=== PATIENT | female | born 1940 | race Caucasian/White ===

== ENCOUNTER 2018-10-25 00:01 | Emergency (ER) | payer MEDICARE, OTHER ==
[~2018-10-25] VITALS: Ht 172.7 cm; Wt 88.5 kg
[2018-10-25 00:10] VITALS: BP 148/77
[2018-10-25] MEDS ORDERED: ZOFRAN4 M3 ORAL (00:10)
--- NOTE | 2018-10-25 00:10 | NUR ---
ED Nurse Note: Received report. Pt BIBA from home, AAOx4, stating pt rolledover in the bed and fell and hit her head on table. Scalp laceration noted on right forehead. Will assess and carry out ER MD's orders.
[2018-10-25] MEDS ORDERED: LOVASTATIN10 MG ORAL (00:11)
[2018-10-25] MEDS ORDERED: CELEXA20 MG ORAL (00:11)
[2018-10-25] MEDS ORDERED: LEVOTHYROXINE75 MCG ORAL (00:11)
[2018-10-25] MEDS ORDERED: DONEPEZIL HCL5 M2 ORAL (00:12)
[2018-10-25] MEDS ORDERED: ZANTAC150 MG ORAL (00:12)
[2018-10-25] MEDS ORDERED: GABAPENTIN100 MG ORAL (00:12)
[2018-10-25] MEDS ORDERED: NAMENDA5 MG ORAL (00:13)
[2018-10-25] MEDS ORDERED: NEXIUM10 MG ORAL (00:13)
[2018-10-25] MEDS ORDERED: HYDROcodone/Acetamin 5/325 tab ORAL ONE (00:15)
--- NOTE | 2018-10-25 00:48 | Diagnostic Imaging Report ---
EXAM: CT Head Without Intravenous Contrast CLINICAL HISTORY: TRAUMA TECHNIQUE: Axial computed tomography images of the head/brain without intravenous contrast. CTDI is 70 mGy and DLP is 1337 mGy-cm. One or more of the following dose reduction techniques were used: automated exposure control, adjustment of the mA and/or kV according to patient size, use of iterative reconstruction technique. COMPARISON: No relevant prior studies available. FINDINGS: Brain: No hemorrhage, large hypodensity, or mass effect. Chronic microvascular ischemic changes. Ventricles: No hydrocephalus. Age-appropriate cerebral volume loss. Bones/joints: Unremarkable. Soft tissues: Unremarkable. Sinuses: Unremarkable. Mastoid air cells: Clear. IMPRESSION: No acute hemorrhage, hydrocephalus, or mass effect.
--- NOTE | 2018-10-25 00:53 | Diagnostic Imaging Report ---
EXAM: CT Cervical Spine Without Intravenous Contrast CLINICAL HISTORY: TRAUMA TECHNIQUE: Axial computed tomography images of the cervical spine without intravenous contrast. CTDI is 16 mGy and DLP is 331 mGy-cm. One or more of the following dose reduction techniques were used: automated exposure control, adjustment of the mA and/or kV according to patient size, use of iterative reconstruction technique. COMPARISON: No relevant prior studies available. FINDINGS: Vertebrae: No acute fracture. Bridging anterior osteophytes. Discs/spinal canal/neural foramina: Mild degenerative changes. No high grade spinal canal stenosis. Soft tissues: Unremarkable. IMPRESSION: No acute fracture or subluxation.
[2018-10-25] MEDS ORDERED: Bacitracin Oint UD TOPIC ONE (02:00)
[2018-10-25] MEDS ORDERED: HYDROCODON-ACE1 EA15 ORAL (02:14)
--- NOTE | 2018-10-25 02:15 | Emergency Room Report ---
History of Present Illness General Chief Complaint: Head Injury Source: Patient, Family Member, EMS Present Illness HPI This is a 78-year-old female with a history of dementia. She presents with chief complaint of head injury and neck pain. She was sleeping and rolled off the bed and hit her head on the dresser. No loss of consciousness. She has a laceration to forehead with bleeding. She also complained of neck pain. Pain is 10 out of 10. She does have a history of osteoarthritis and takes tramadol and gabapentin. Allergies: Coded Allergies: No Known Allergies (Unverified , 10/25/18) Patient History Past Medical History: see triage record, old chart reviewed Past Surgical History: other Pertinent Family History: none Social History: Denies: smoking Now: No Immunizations: other Reviewed Nursing Documentation: PMH: Agreed; PSxH: Agreed Nursing Documentation-PMH Past Medical History: No History, Except For Hx Gastrointestinal Problems: Yes - GERD Hx Neurological Problems: Yes - hypothyroidism, muscle spasms,dementia Review of Systems Eye: Denies: eye pain, blurred vision ENT: Denies: ear pain, nose congestion, throat swelling Respiratory: Denies: cough, shortness of breath Cardiovascular: Denies: chest pain, palpitations Gastrointestinal: Denies: abdominal pain, diarrhea, nausea, vomiting Musculoskeletal: Denies: back pain, joint pain Skin: Denies: rash Neurological: Reports: headache; Denies: numbness Endocrine: Denies: increased thirst, increased urine Hematologic/Lymphatic: Denies: easy bruising All Other Systems: negative except mentioned in HPI Physical Exam Vital Signs Date Time Temp Pulse Resp B/P (MAP) Pulse Ox O2 Delivery O2 Flow Rate FiO2 10/25/18 00:05 98.4 83 18 148/77 (100) 99 Room Air Vitals unremarkable Sp02 EP Interpretation: reviewed, normal General Appearance: well appearing, no apparent distress, alert Head: normocephalic, other - Right forehead: 10 cm laceration. No foreign body. Goes down to the skull. There is a flap. Eyes: bilateral eye PERRL, bilateral eye EOMI ENT: hearing grossly normal, normal pharynx Neck: full range of motion, supple, no meningismus, tender - Diffuse pain Respiratory: chest non-tender, lungs clear, normal breath sounds Cardiovascular #1: regular rate, rhythm, no murmur Gastrointestinal: normal bowel sounds, non tender, no mass, no organomegaly, no bruit, non-distended Musculoskeletal: back normal, gait/station normal, normal range of motion Psychiatric: mood/affect normal Skin: warm/dry Procedures Laceration/Wound Repair Laceration/Wound Repair : Consent: Verbal Wound Location: head Wound's Depth, Shape: into muscle, flap, contused tissue Wound Length (cm): 10 Wound Explored: clean Irrigated w/ Saline (ccs): 1000 Anesthesia: 1% Lidocaine Volume Anesthetic (ccs): 10 Wound Repaired With: sutures Suture Size/Type: 4:0, other - chromic Number of Sutures: 9 Patient Tolerated: Well Complications: None Progress I placed 2 horizontal mattress sutures and 7 interrupted sutures. Medical Decision Making Diagnostic Impression: Primary Impression: Acute head injury Qualified Codes: S09.90XA - Unspecified injury of head, initial encounter Additional Impressions: Scalp laceration Qualified Codes: S01.01XA - Laceration without foreign body of scalp, initial encounter Cervical strain, acute Qualified Codes: S16.1XXA - Strain of muscle, fascia and tendon at neck level , initial encounter ER Course Patient presents with soft tissue injury and laceration secondary to fall. No bleed. No fracture. Will discharge home. CT/MRI/US Diagnostic Results CT/MRI/US Diagnostic Results #1: Imaging Test Ordered: CT Head Impression Read by radiologist. Negative. CT/MRI/US Diagnostic Results #2: Imaging Test Ordered: CT C spine Impression Read by radiologist. No acute process. Last Vital Signs Date Time Temp Pulse Resp B/P (MAP) Pulse Ox O2 Delivery O2 Flow Rate FiO2 10/25/18 00:05 98.4 83 18 148/77 (100) 99 Room Air Status: improved Disposition: HOME, SELF-CARE Condition: Stable Scripts Hydrocodone/Acetaminophen 5-325* (HYDROCODONE/ACETAMINOPHEN 5-325*) 1 Each Tablet 1 TAB ORAL Q6H PRN for For Pain, #20 TAB 0 Refills Prov: Ronnell Andrade MD 10/25/18 Referrals: NOT CHOSEN IPA/,REFERRING (PCP) Additional Instructions: Follow-up with your doctor in 7 days. Return if worse. Sutures will fall off. Ronnell Andrade MD Oct 25, 2018 02:15
--- NOTE | 2018-10-25 02:16 | NUR ---
ED Nurse Note: Pt received sutures and irrigation along with dressing.
--- NOTE | 2018-10-25 02:27 | NUR ---
ED Nurse Note: Pt cleared by health care Provider for discharge. DC instructions/prescription was given and explained to pt's daughter's and verbalized understanding of teachings. All medical deviecs such as ID band removed. Pt is AAO x4, assisted to vehicle in wheelchair and left with all personal belongings.
== END 2018-10-25 02:24 | disposition home or self-care (01) ==
LOC: EDBD 00:01 → EMR 01:47
DX: S01.01XA Laceration without foreign body of scalp, initial encounter (principal); S16.1XXA Strain of muscle, fascia and tendon at neck level, initial encounter; M19.90 Unspecified osteoarthritis, unspecified site; K21.9 Gastro-esophageal reflux disease without esophagitis; E03.9 Hypothyroidism, unspecified; F03.90 Unspecified dementia, unspecified severity, without behavioral disturbance, psychotic disturbance, mood disturbance, and anxiety; W06.XXXA Fall from bed, initial encounter; Y92.003 Bedroom of unspecified non-institutional (private) residence as the place of occurrence of the external cause
CPT/HCPCS: 70450; 72125; 99284